=== PATIENT | male | born 1960 | race Caucasian/White ===

== ENCOUNTER 2016-11-14 18:13 | Emergency (ER) | payer MEDICAID ==
--- NOTE | 2016-11-14 18:50 | Emergency Department Record ---
History of Present Illness - General Chief Complaint: Cough Stated Complaint: COUGH AND EAR PAIN Time Seen by Provider: 11/14/16 18:43 Source: Patient Mode of Arrival: Ambulatory Limitations: No limitations - History of Present Illness Initial Comments: 56 yo male presents with a cough for about one month. He has a prior history of asthma and pneumonia 9three times) The cough is dry. No fevers. His family member tested positive for the flu. No hemoptysis. He has left ear pain and pressure. He has clear nasal drainage. MD Complaint: Cough Onset/Timin -: Week(s) Consistency: Constant Worsens With: Other (cough) Associated Symptoms: Cough, Ear pain Treatments Prior to Arrival: None - Related Data Home Medications Medication Instructions Recorded Confirmed Last Taken Fluticasone Propionate [Flonase] 2 spray EACH NARES DAILY 11/20/15 11/14/16 Hydrochlorothiazide 12.5 mg PO DAILY 11/20/15 11/14/16 10/12/16 Montelukast Sodium [Singulair] 10 mg PO DAILY PRN 11/20/15 11/14/16 10/12/16 Previous Rx's Medication Instructions Recorded Benzonatate [Tessalon] 1 cap PO Q8H PRN #20 cap 11/14/16 Prednisone [Prednisone 20Mg] 20 mg PO BID #10 tab 11/14/16 Allergies Allergy/AdvReac Type Severity Reaction Status Date / Time iodine Allergy PT UNSURE Verified 10/12/16 18:23 OF REACTION meperidine HCl [From Demerol] Allergy SWELLING Verified 10/12/16 18:23 (GENERAL) Travel Screening - Travel/Exposure Within Last 30 Days Have you traveled within the last 30 days?: No Review of Systems Constitutional: Denies: Chills, Fever, Malaise, Weakness Eyes: Denies: Eye discharge, Eye pain, Photophobia, Vision change ENT: Reports: Congestion, Ear pain. Denies: Dental pain, Epistaxis, Throat pain Respiratory: Reports: Cough. Denies: Dyspnea, Hemoptysis, Stridor, Wheezes Cardiovascular: Reports: Chest pain (Hurts on the left with a hard cough). Denies: Palpitations, Syncope Endocrine: Denies: Fatigue Gastrointestinal: Denies: Abdominal pain, Diarrhea, Nausea, Vomiting Genitourinary: Denies: Dysuria, Frequency Musculoskeletal: Denies: Arthralgia, Back pain, Myalgia, Neck pain Skin: Denies: Bruising, Change in color Neurological: Denies: Confusion, Headache, Tingling, Tremors Psychiatric: Denies: Anxiety Hematological/Lymphatic: Denies: Blood Clots, Easy bleeding, Easy bruising, Swollen glands Past Medical History - SOCIAL HISTORY Smoking Status: Former smoker Alcohol Use: None Drug Use: None - RESPIRATORY Hx Respiratory Disorders: Yes Hx Asthma: Yes Hx Bronchitis: Yes Hx Pneumonia: Yes Hx Sleep Apnea: Yes Hx of CPAP: No Comment:: seasonal allergies - CARDIOVASCULAR Hx Cardio Disorders: Yes Hx Heart Attack: Yes (20 yrs ago) Hx Hypertension: Yes Comment:: murmur - NEURO Hx Neuro Disorders: Yes Hx Headaches: Yes (silent migraines) - GI Hx GI Disorders: No - Hx Genitourinary Disorders: No - ENDOCRINE Hx Endocrine Disorders: No - MUSCULOSKELETAL Hx Musculoskeletal Disorders: Yes Hx Arthritis: Yes - PSYCH Hx Psych Problems: No - HEMATOLOGY/ONCOLOGY Hx Hematology/Oncology Disorders: No Family Medical History Any Significant Family History?: Yes Hx Cancer: Father, Grandparents *Cancer Comment: Leukemia *Heart Comment: Uncles w/[place] Physical Exam - General General Appearance: Alert, Oriented x3, Cooperative, No acute distress Limitations: No limitations - Head Head exam: Normal inspection - Eye Eye exam: Normal appearance, PERRL. negative: Conjunctival injection - ENT ENT exam: Normal exam, Mucous membranes moist, Normal external ear exam, Normal orophraynx, TM's normal bilaterally Ear exam: Normal external inspection. negative: External canal tenderness Nasal Exam: Normal inspection. negative: Discharge, Sinus tenderness Mouth exam: Normal external inspection, Tongue normal Teeth exam: Normal inspection. negative: Dental caries Throat exam: Normal inspection. negative: Tonsillar erythema, Tonsillar exudate - Neck Neck exam: Normal inspection, Full ROM. negative: Tenderness - Respiratory Respiratory exam: Normal lung sounds bilaterally. negative: Accessory muscle use, Prolonged expiratory, Respiratory distress, Rhonchi, Stridor, Wheezes - Cardiovascular Cardiovascular Exam: Regular rate, Normal rhythm, Normal heart sounds - GI/Abdominal GI/Abdominal exam: Soft. negative: Tenderness - Rectal Rectal exam: Deferred - exam: Deferred - Extremities Extremities exam: Normal inspection, Full ROM, Normal capillary refill. negative: Pedal edema, Tenderness - Back Back exam: Reports: Normal inspection, Full ROM. Denies: Muscle spasm, Rash noted, Tenderness - Neurological Neurological exam: Alert, Normal gait, Oriented X3 - Psychiatric Psychiatric exam: Normal affect, Normal mood - Skin Skin exam: Dry, Intact, Normal color, Warm Course Vital Signs 11/14/16 18:34 Temperature 98.3 F Pulse Rate 73 Respiratory 20 Rate Blood Pressure 152/78 Pulse Ox 97 - Reevaluation(s) Reevaluation #1: CXR unchanged from prior Influenza is negative He was given Tessalon and Prednisone No fever or sputum and CXR is negative No indication for antibiotics at this time. 11/14/16 20:32 11/14/16 21:43 Disposition Disposition: Discharge Clinical Impression: Bronchitis Disposition: Home, Self-Care Condition: (1) Good Instructions: Acute Bronchitis (ED) Additional Instructions: Take prednisone and tessalon as directed Call your doctor for close follow up the next 2-3 days Prescriptions: Prednisone [Prednisone 20Mg] 20 mg PO BID #10 tab Benzonatate [Tessalon] 1 cap PO Q8H PRN #20 cap PRN Reason: Cough Forms: Patient Portal Access Time of Disposition: 20:33
[2016-11-14] MEDS ORDERED: BENZONATATE 100 MG CAPSULE PO ONE (18:53)
[2016-11-14] MEDS ORDERED: PREDNISONE 20 MG TAB PO ONE (18:53)
[2016-11-14 19:22] LABS: INFLUENZA A NEGATIVE (NEGATIVE); INFLUENZA B NEGATIVE (NEGATIVE)
--- NOTE | 2016-11-18 14:06 | RADIOLOGY REPORT ---
DATE: 11/14/2016 at 8:00 p.m. EXAM: TWO-VIEW CHEST. HISTORY: Diagnosed with pneumonia three weeks ago. Cough never went away. Pain in the left side of the chest and left ear. TECHNIQUE: PA and lateral views of the chest were obtained. COMPARISON: Two-view chest dated 10/12/2016. FINDINGS: Heart size is stable. Persistent mild linear fibrosis or discoid atelectasis in the left base. No new infiltrate identified. No pleural effusion or pneumothorax is seen. Some hypertrophic spurring in the spine. IMPRESSION: SOME PERSISTENT MILD LINEAR FIBROSIS OR DISCOID ATELECTASIS IN THE LEFT BASE. HYPERTROPHIC SPURRING IN THE SPINE. JOB NUMBER: [id number] [facility]
== END 2016-11-14 20:49 | disposition home or self-care (01) ==
LOC: ER 18:13
DX: J20.9 Acute bronchitis, unspecified (principal); H92.02 Otalgia, left ear; I10 Essential (primary) hypertension; Z87.891 Personal history of nicotine dependence
CPT/HCPCS: 99283 ×2; 87400; 71020; J7512

== ENCOUNTER 2016-11-20 08:40 | Emergency (ER) | payer MEDICAID ==
--- NOTE | 2016-11-20 08:51 | Emergency Department Record ---
History of Present Illness - General Chief Complaint: Cough Stated Complaint: COUGH Time Seen by Provider: 11/20/16 08:49 Source: Patient Mode of Arrival: Ambulatory Limitations: No limitations - History of Present Illness Initial Comments: The patient is here due to a 2 week hx of cough, congestion, and now colored sputum production. He was in the ER a week ago and diagnosed with a viral URI and placed on oral steroids and a cough medicine. Now the cough and sputum have worsened. MD Complaint: Cough, Nasal congestion, Rhinorrhea Onset/Timin -: Week(s) - Related Data Home Medications Medication Instructions Recorded Confirmed Last Taken Fluticasone Propionate [Flonase] 2 spray EACH NARES DAILY 11/20/15 11/20/1603/31 Hydrochlorothiazide 12.5 mg PO DAILY 11/20/15 11/20/16 11/19/16 Montelukast Sodium [Singulair] 10 mg PO DAILY PRN 11/20/15 11/20/16 11/19/16 Guaifenesin [Mucinex] 600 mg PO DAILY 11/20/16 11/20/16 11/20/16 Previous Rx's Medication Instructions Recorded Benzonatate [Tessalon] 1 cap PO Q8H PRN #20 cap 11/14/16 Prednisone [Prednisone 20Mg] 20 mg PO BID #10 tab 11/14/16 Albuterol Sulfate 0.083% [Neb] 3 ml NEB QID PRN #1 ml 11/20/16 Levofloxacin [Levaquin] 750 mg PO DAILY #4 tablet 11/20/16 Potassium Chloride [Klor-Con] 20 meq PO DAILY #7 tab.prt.sr 11/20/16 Prednisone [Prednisone 20Mg] 20 mg PO ASDIR #15 tab 11/20/16 Allergies Allergy/AdvReac Type Severity Reaction Status Date / Time iodine Allergy PT UNSURE Verified 10/12/16 18:23 OF REACTION meperidine HCl [From Demerol] Allergy SWELLING Verified 10/12/16 18:23 (GENERAL) Travel Screening - Travel/Exposure Within Last 30 Days Have you traveled within the last 30 days?: Yes Location Detail:: [place] - Travel/Exposure Within Last Year Have you traveled outside the [place] in the last year?: No - Additonal Travel Details Have you been exposed to anyone with a communicable illness?: No - Travel Symptoms Symptom Screening: None Review of Systems Constitutional: Denies: Chills, Fever Eyes: Denies: Eye discharge ENT: Reports: Congestion Respiratory: Reports: Cough. Denies: Dyspnea, Wheezes Cardiovascular: Denies: Chest pain Past Medical History - SOCIAL HISTORY Smoking Status: Former smoker Alcohol Use: None Drug Use: None - RESPIRATORY Hx Respiratory Disorders: Yes Hx Asthma: Yes Hx Bronchitis: Yes Hx Pneumonia: Yes Hx Sleep Apnea: Yes Hx of CPAP: No Comment:: seasonal allergies - CARDIOVASCULAR Hx Cardio Disorders: Yes Hx Heart Attack: Yes (20 yrs ago) Hx Hypertension: Yes Comment:: murmur - NEURO Hx Neuro Disorders: Yes Hx Headaches: Yes (silent migraines) - GI Hx GI Disorders: No - Hx Genitourinary Disorders: No - ENDOCRINE Hx Endocrine Disorders: No - MUSCULOSKELETAL Hx Musculoskeletal Disorders: Yes Hx Arthritis: Yes - PSYCH Hx Psych Problems: No - HEMATOLOGY/ONCOLOGY Hx Hematology/Oncology Disorders: No Family Medical History Any Significant Family History?: No Hx Cancer: Father, Grandparents *Cancer Comment: Leukemia *Heart Comment: Uncles w/[place] Physical Exam - General General Appearance: Alert, Oriented x3, Cooperative, No acute distress - Head Head exam: Atraumatic, Normocephalic, Normal inspection - Eye Eye exam: Normal appearance, PERRL - Neck Neck exam: Normal inspection, Full ROM. negative: Tenderness - Respiratory Respiratory exam: Normal lung sounds bilaterally. negative: Respiratory distress, Rhonchi, Stridor, Wheezes - Cardiovascular Cardiovascular Exam: Regular rate, Normal rhythm, Normal heart sounds - GI/Abdominal GI/Abdominal exam: Soft, Normal bowel sounds. negative: Tenderness - Extremities Extremities exam: Normal inspection, Full ROM, Normal capillary refill. negative: Tenderness - Neurological Neurological exam: Normal gait. negative: Abnormal gait Course Vital Signs 11/20/16 08:42 Temperature 98.1 F Pulse Rate 86 Respiratory 16 Rate Blood Pressure 134/85 Pulse Ox 95 - Reevaluation(s) Reevaluation #1: The patient is doing better. He denies any CP or SOB at this time. I did discuss his lab and xray results and the need for F/U if he is not better. 11/20/16 10:03 Medical Decision Making - Data Complexity MDM Data: Labs Ordered and/or Reviewed, X-Ray Ordered and/or Reviewed - Lab Data Result diagrams: 11/20/16 09:15 11/20/16 09:15 - Radiology Data Radiology results: Report reviewed (CXR: No acute changes.) Disposition Disposition: Discharge Clinical Impression: Bronchitis Disposition: Home, Self-Care Condition: (1) Good Instructions: Reactive Airways Disease (ED), Acute Bronchitis (ED) Additional Instructions: Please continue your steroids tomorrow along with the Abx. Take the potassium as directed along with the neb treatments. Please see your PCP later this week if not better and return to the ER if worse. Prescriptions: Albuterol Sulfate 0.083% [Neb] 3 ml NEB QID PRN #1 ml PRN Reason: Difficulty In Breathing Potassium Chloride [Klor-Con] 20 meq PO DAILY #7 tab.prt.sr Levofloxacin [Levaquin] 750 mg PO DAILY #4 tablet Prednisone [Prednisone 20Mg] 20 mg PO ASDIR #15 tab Forms: Patient Portal Access Time of Disposition: 10:08
[2016-11-20] MEDS ORDERED: METHYLPREDNISOLONE PF 125MG/VIAL IM ONE (09:02)
[2016-11-20] MEDS ORDERED: IPRATROPIUM/ALBUTEROL (0.5MG/3MG) NEB INH ONE (09:02)
[2016-11-20] MEDS ORDERED: LEVOFLOXACIN 500 MG TABLET PO ONE (09:17)
[2016-11-20 09:23] LABS: BASO % 0.1 % (0-6); EOS % 0.9 % (0-6); GRAN % 75.6 % (47-80); HEMATOCRIT 44.6 % (42.0-52.0); HEMOGLOBIN 15.2 gm/dl (14.0-18.0); LYMPH % 15.2 % (16-45); MEAN CELL VOLUME 89.4 fl (81-97); MEAN CORPUSCULAR HEMOGLOBIN 30.5 pg (27-33); MEAN CORPUSCULAR HGB CONC 34.1 g/dl (32-36); MEAN PLATELET VOLUME 9.9 fl (7.4-10.4); MONO % 8.2 % (0-9); PLATELET COUNT 245 K/uL (130-400); RED BLOOD COUNT 4.99 M/uL (4.40-5.70); RED CELL DISTRIBUTION WIDTH 13.7 % (11.5-14.5); WHITE BLOOD COUNT W/O DIFF 9.7 K/uL (4.2-12.2)
[2016-11-20 09:35] LABS: ALB/GLOB RATIO 1.5 (1.1-1.8); ALKALINE PHOSPHATASE 69 U/L (38-126); ALT/SGPT 52 U/L (21-72); ANION GAP 14.4 (7-16); AST/SGOT 24 U/L (17-59); BILIRUBIN,TOTAL 0.45 mg/dL (0.2-1.3); BLOOD UREA NITROGEN 11 mg/dL (9-20); CARBON DIOXIDE 27.6 mmol/L (22-30); EST GLOMERULAR FILTRATION RATE > 60 ml/min; GLUCOSE,RANDOM 193 mg/dL (70-110); TOTAL PROTEIN 6.7 gm/dL (6.3-8.2)
[2016-11-20] MEDS ORDERED: POTASSIUM CHLORIDE 20 MEQ TABLET PO ONE (09:39)
[2016-11-20] MEDS ORDERED: 0.9 % SODIUM CHLORIDE 1,000 ML BAG IV ONE (10:02)
--- NOTE | 2016-11-22 12:22 | RADIOLOGY REPORT ---
EXAM: CHEST, TWO VIEWS HISTORY: PRODUCTIVE COUGH FOR THE PAST TWO WEEKS. TECHNIQUE: PA and lateral upright views of the chest were obtained. Comparison: 11/14/16. FINDINGS: The heart, mediastinum, and pulmonary vasculature are normal. There is minor stable linear atelectasis or scarring at the lung bases. This is unchanged from the prior study. There are no visible acute infiltrates or effusions. There is no pneumothorax. Degenerative changes are present within the spine and are unchanged. IMPRESSION: STABLE CHEST WITH NO ACUTE PROCESS IDENTIFIED. JOB NUMBER: [id number] [facility]
== END 2016-11-20 10:48 | disposition home or self-care (01) ==
LOC: ER 08:40
DX: J20.9 Acute bronchitis, unspecified (principal); I10 Essential (primary) hypertension; I25.2 Old myocardial infarction; Z87.891 Personal history of nicotine dependence
CPT/HCPCS: 71020; 80053; 85025; 94640; 96372; 99284; J2930; J7030

== ENCOUNTER 2017-01-16 18:36 | Emergency (ER) | payer MEDICAID ==
[2017-01-16] MEDS ORDERED: ONDANSETRON HCL IV 4 MG/2 ML VIAL IVP ONE (18:58)
[2017-01-16] MEDS ORDERED: 0.9 % SODIUM CHLORIDE 1000ML 1,000 ML IV SCH (19:00)
--- NOTE | 2017-01-16 19:03 | Emergency Department Record ---
History of Present Illness - General Chief complaint: ENT Stated complaint: LT EAR ACHE,DEHYDRATED Time Seen by Provider: 01/16/17 18:58 Source: Patient Mode of Arrival: Ambulatory Limitations: No limitations - History of Present Illness Initial comments: 56 yo male presents to ED stating that he feels "dehydrated". Patient reports that he feels fatigued, and that he has dry skin. Patient reports "flu-like symptoms" and "stomach pain" for the past several months. Patient denies fevers , chills, vomiting, or loose stools. Patient denies productive cough or urinary symptoms. Patient also reports a 1 week history of left ear pain, denies change in hearing or discharge from the ear. Patient denies health problems other than HTN. MD complaint: Ear pain, Other (dehydration) Onset/Timin -: Week(s) Location: L ear, Nose Severity: Mild Quality: Aching Consistency: Constant Improves with: None Worsens with: None Associated Symptoms: Other - Related Data Home Medications Medication Instructions Recorded Confirmed Last Taken Fluticasone Propionate [Flonase] 2 spray EACH NARES DAILY 11/20/15 01/16/1703/31 Hydrochlorothiazide 12.5 mg PO DAILY 11/20/15 01/16/17 01/16/17 Montelukast Sodium [Singulair] 10 mg PO DAILY PRN 11/20/15 01/16/17 01/16/17 Previous Rx's Medication Instructions Recorded Prednisone [Prednisone 20Mg] 20 mg PO BID #10 tab 11/14/16 Albuterol Sulfate 0.083% [Neb] 3 ml NEB QID PRN #1 ml 11/20/16 Allergies Allergy/AdvReac Type Severity Reaction Status Date / Time iodine Allergy PT UNSURE Verified 01/16/17 18:52 OF REACTION meperidine HCl [From Demerol] Allergy SWELLING Verified 01/16/17 18:52 (GENERAL) Travel Screening - Travel/Exposure Within Last 30 Days Have you traveled within the last 30 days?: No Review of Systems Constitutional: Denies: Chills, Fever, Malaise, Night sweats Eyes: Denies: Eye discharge, Eye pain ENT: Reports: Congestion, Ear pain. Denies: Epistaxis Respiratory: Denies: Cough, Dyspnea Cardiovascular: Denies: Chest pain, Dyspnea on exertion Endocrine: Denies: Fatigue, Heat or cold intolerance Gastrointestinal: Denies: Abdominal pain, Nausea, Vomiting Genitourinary: Denies: Incontinence, Retention Musculoskeletal: Denies: Arthralgia, Back pain Skin: Denies: Bruising, Change in color Neurological: Denies: Abnormal gait, Confusion, Headache, Tingling, Tremors Psychiatric: Denies: Anxiety Hematological/Lymphatic: Denies: Anemia, Blood Clots Past Medical History - SOCIAL HISTORY Smoking Status: Former smoker Alcohol Use: None Drug Use: None - RESPIRATORY Hx Respiratory Disorders: Yes Hx Asthma: Yes Hx Bronchitis: Yes Hx Pneumonia: Yes Hx Sleep Apnea: Yes Hx of CPAP: No Comment:: seasonal allergies - CARDIOVASCULAR Hx Cardio Disorders: Yes Hx Heart Attack: Yes (20 yrs ago) Hx Hypertension: Yes Comment:: murmur - NEURO Hx Neuro Disorders: Yes Hx Headaches: Yes (silent migraines) - GI Hx GI Disorders: No - Hx Genitourinary Disorders: No - ENDOCRINE Hx Endocrine Disorders: No - MUSCULOSKELETAL Hx Musculoskeletal Disorders: Yes Hx Arthritis: Yes - PSYCH Hx Psych Problems: No - HEMATOLOGY/ONCOLOGY Hx Hematology/Oncology Disorders: No Family Medical History Any Significant Family History?: Yes Hx Cancer: Father, Grandparents *Cancer Comment: Leukemia *Heart Comment: Uncles w/[place] Physical Exam - General General Appearance: Alert, Oriented x3, Cooperative, No acute distress Limitations: No limitations - Head Head exam: Atraumatic, Normocephalic, Normal inspection Head exam detail: negative: Abrasion, Contusion, Ziegler's sign, General tenderness, Hematoma, Laceration - Eye Eye exam: Normal appearance. negative: Conjunctival injection, Periorbital swelling, Periorbital tenderness, Scleral icterus - ENT Ear exam: Other (Scar tissue left TM, no evidence for infection on examination) . negative: Auricular hematoma, Auricular trauma Nasal Exam: negative: Active bleeding, Discharge, Dried blood, Foreign body Mouth exam: negative: Drooling, Laceration, Muffled voice, Tongue elevation - Neck Neck exam: Normal inspection. negative: Meningismus, Tenderness - Respiratory Respiratory exam: Normal lung sounds bilaterally. negative: Rhonchi, Stridor, Wheezes - Cardiovascular Cardiovascular Exam: Regular rate, Normal rhythm, Normal heart sounds - GI/Abdominal GI/Abdominal exam: Soft. negative: Distended, Pulsatile mass, Rebound, Rigid, Tenderness - Rectal Rectal exam: Deferred - exam: Deferred - Extremities Extremities exam: Normal inspection. negative: Pedal edema, Tenderness - Back Back exam: Denies: CVA tenderness (R), CVA tenderness (L) - Neurological Neurological exam: Alert, Normal gait, Oriented X3 - Psychiatric Psychiatric exam: Normal affect, Normal mood - Skin Skin exam: Normal color. negative: Abrasion Type of lesion: negative: abrasion Course Vital Signs 01/16/17 18:48 Temperature 98.4 F Pulse Rate 68 Respiratory 20 Rate Blood Pressure 145/81 Pulse Ox 95 - Reevaluation(s) Reevaluation #1: 01/16/17 20:07 Labs reviewed and are grossly unremarkable for an acute process. Patient reassessed, reports that he is feeling much better. Patient appears stable for discharge at this time with instructions to follow-up with his PCP in 3-5 days as directed. Medical Decision Making - Lab Data Result diagrams: 01/16/17 19:15 01/16/17 19:15 Disposition Disposition: Discharge Clinical Impression: Dehydration Disposition: Home, Self-Care Condition: (2) Stable Instructions: Dehydration (ED) Additional Instructions: Return to ED if your symptoms worsen or if you have any concerns. Follow-up with your family doctor in 3-5 days as directed. Forms: Patient Portal Access Time of Disposition: 19:54
[2017-01-16 19:30] LABS: BASO % 0.3 % (0-6); EOS % 3.3 % (0-6); GRAN % 61.1 % (47-80); HEMATOCRIT 43.2 % (42.0-52.0); HEMOGLOBIN 14.4 gm/dl (14.0-18.0); MEAN CELL VOLUME 89.1 fl (81-97); MEAN CORPUSCULAR HEMOGLOBIN 29.7 pg (27-33); MEAN CORPUSCULAR HGB CONC 33.3 g/dl (32-36); MEAN PLATELET VOLUME 9.9 fl (7.4-10.4); MONO % 11.3 % (0-9); PLATELET COUNT 219 K/uL (130-400); RED BLOOD COUNT 4.85 M/uL (4.40-5.70); RED CELL DISTRIBUTION WIDTH 13.8 % (11.5-14.5); WHITE BLOOD COUNT W/O DIFF 6.3 K/uL (4.2-12.2)
[2017-01-16 19:35] LABS: ALB/GLOB RATIO 1.5 (1.1-1.8); ALKALINE PHOSPHATASE 76 U/L (38-126); ALT/SGPT 53 U/L (21-72); ANION GAP 11.4 (7-16); AST/SGOT 29 U/L (17-59); BLOOD UREA NITROGEN 15 mg/dL (9-20); CARBON DIOXIDE 24.6 mmol/L (22-30); EST GLOMERULAR FILTRATION RATE > 60 ml/min; GLUCOSE,RANDOM 85 mg/dL (70-110); LIPASE 155 U/L (23-300); TOTAL PROTEIN 6.7 gm/dL (6.3-8.2)
[2017-01-16 20:06] LABS: THYROID STIMULATING HORMONE 1.88 uIU/ml (0.465-4.68)
== END 2017-01-16 20:42 | disposition home or self-care (01) ==
LOC: ER 18:36
DX: E86.0 Dehydration (principal); H92.02 Otalgia, left ear; R53.83 Other fatigue; I10 Essential (primary) hypertension; I25.2 Old myocardial infarction; Z87.891 Personal history of nicotine dependence
CPT/HCPCS: 99284 ×2; 96374; 96361; 83690; 85025; 80053; 84443; J2405; J7030

== ENCOUNTER 2017-11-21 16:19 | Emergency (ER) | payer MEDICAID ==
--- NOTE | 2017-11-21 17:56 | Emergency Department Record ---
History of Present Illness - General Chief complaint: ENT Stated complaint: COUGH,ITCHY THROAT Time Seen by Provider: 11/21/17 17:49 Source: Patient, RN notes reviewed Mode of Arrival: Ambulatory - History of Present Illness Initial comments: congestion and cough and rhinorrhea and he has had it for 1 day. Onset/Timin -: Days(s) Location: Throat Quality: Aching Consistency: Constant Context- Ear: Direct trauma Associated Symptoms: Cough - Related Data Home Medications Medication Instructions Recorded Confirmed Last Taken Loratadine [Claritin] 10 mg PO ASDIR 11/21/17 11/21/17 Unknown Previous Rx's Medication Instructions Recorded Albuterol Sulfate 0.083% [Neb] 3 ml NEB QID PRN #1 ml 11/20/16 Allergies Allergy/AdvReac Type Severity Reaction Status Date / Time iodine Allergy PT UNSURE Verified 11/21/17 17:40 OF REACTION meperidine HCl [From Demerol] Allergy SWELLING Verified 11/21/17 17:40 (GENERAL) Travel Screening - Travel/Exposure Within Last 30 Days Have you traveled within the last 30 days?: No - Travel/Exposure Within Last Year Have you traveled outside the [place] in the last year?: No - Travel Symptoms Symptom Screening: None Review of Systems Reviewed: No additional complaints except as noted below Constitutional: Reports: As per HPI. Denies: Chills, Fever, Malaise, Night sweats, Weakness, Weight change Eyes: Reports: As per HPI. Denies: Eye discharge, Eye pain, Photophobia, Vision change ENT: Reports: As per HPI, Congestion, Throat pain. Denies: Dental pain, Ear pain, Epistaxis, Hearing loss Respiratory: Reports: As per HPI, Cough. Denies: Dyspnea, Hemoptysis, Stridor, Wheezes Cardiovascular: Reports: As per HPI. Denies: Arrhythmia, Chest pain, Dyspnea on exertion, Edema, Murmurs, Orthopnea, Palpitations, Paroxysmal nocturnal dyspnea, Rheumatic Fever, Syncope Endocrine: Reports: As per HPI. Denies: Fatigue, Heat or cold intolerance, Polydipsia, Polyuria Gastrointestinal: Reports: As per HPI. Denies: Abdominal pain, Constipation, Diarrhea, Hematemesis, Hematochezia, Melena, Nausea, Vomiting Genitourinary: Reports: As per HPI. Denies: Dysuria, Frequency, Hematuria, Incontinence, Retention, Testicular pain, Testicular mass, Urgency Musculoskeletal: Reports: As per HPI. Denies: Arthralgia, Back pain, Gout, Joint swelling, Myalgia, Neck pain Skin: Reports: As per HPI. Denies: Bruising, Change in color, Change in hair/ nails, Lesions, Pruritus, Rash Neurological: Reports: As per HPI. Denies: Abnormal gait, Confusion, Headache, Numbness, Paresthesias, Seizure, Tingling, Tremors, Vertigo, Weakness Psychiatric: Reports: As per HPI. Denies: Anxiety, Auditory hallucinations, Depression, Homicidal thoughts, Suicidal thoughts, Visual hallucinations Hematological/Lymphatic: Reports: As per HPI. Denies: Anemia, Blood Clots, Easy bleeding, Easy bruising, Swollen glands Past Medical History - SOCIAL HISTORY Smoking Status: Former smoker Alcohol Use: None Drug Use: None - RESPIRATORY Hx Respiratory Disorders: Yes Hx Asthma: Yes Hx Bronchitis: Yes Hx Pneumonia: Yes Hx Sleep Apnea: Yes Hx of CPAP: No Comment:: seasonal allergies - CARDIOVASCULAR Hx Cardio Disorders: Yes Hx Heart Attack: Yes (20 yrs ago) Hx Hypertension: Yes Comment:: murmur - NEURO Hx Neuro Disorders: Yes Hx Headaches: Yes (silent migraines) - GI Hx GI Disorders: No - Hx Genitourinary Disorders: No - ENDOCRINE Hx Endocrine Disorders: No - MUSCULOSKELETAL Hx Musculoskeletal Disorders: Yes Hx Arthritis: Yes - PSYCH Hx Psych Problems: No - HEMATOLOGY/ONCOLOGY Hx Hematology/Oncology Disorders: No Family Medical History Any Significant Family History?: No Hx Cancer: Father, Grandparents *Cancer Comment: Leukemia *Heart Comment: Uncles w/[place] Physical Exam - General General Appearance: Alert, Oriented x3, Cooperative, No acute distress - Head Head exam: Normal inspection - Eye Eye exam: Normal appearance, PERRL Pupils: Normal accommodation - ENT ENT exam: Normal exam, Mucous membranes moist, Normal external ear exam, Normal orophraynx, TM's normal bilaterally Ear exam: Normal external inspection. negative: External canal tenderness Nasal Exam: Normal inspection. negative: Discharge, Sinus tenderness Mouth exam: Normal external inspection, Tongue normal Teeth exam: Normal inspection. negative: Dental caries Throat exam: Normal inspection. negative: Tonsillar erythema, Tonsillar exudate - Neck Neck exam: Normal inspection, Full ROM. negative: Tenderness - Respiratory Respiratory exam: Normal lung sounds bilaterally. negative: Respiratory distress - Cardiovascular Cardiovascular Exam: Regular rate, Normal rhythm, Normal heart sounds - GI/Abdominal GI/Abdominal exam: Soft, Normal bowel sounds. negative: Tenderness - Rectal Rectal exam: Deferred - exam: Deferred - Extremities Extremities exam: Normal inspection, Full ROM, Normal capillary refill. negative: Tenderness - Back Back exam: Reports: Normal inspection, Full ROM. Denies: Muscle spasm, Rash noted, Tenderness - Neurological Neurological exam: Alert, Normal gait, Oriented X3, Reflexes normal - Psychiatric Psychiatric exam: Normal affect, Normal mood - Skin Skin exam: Dry, Intact, Normal color, Warm Course Vital Signs 11/21/17 17:32 Temperature 98.5 F Pulse Rate 73 Respiratory 16 Rate Blood Pressure 155/83 Pulse Ox 96 Disposition Clinical Impression: Influenza Disposition: Home, Self-Care Condition: (1) Good Instructions: Influenza (ED) Additional Instructions: fluid, robitussin DM for cough. tylenol or motrin or advil for pain Time of Disposition: 17:55 Quality - Quality Measures Quality Measures: N/A - Blood Pressure Screening Does Patient Have Any of the Following: No Blood Pressure Classification: Pre-Hypertensive BP Reading Systolic Measurement: 155 Diastolic Measurement: 83 Screening for High Blood Pressure: < Pre-Hypertensive BP, F/U Documented > [ [id number]] Pre-Hypertensive Follow-up Interventions: Referral to alternative/primary care provider.
== END 2017-11-21 18:20 | disposition home or self-care (01) ==
LOC: ER 16:19
DX: J10.1 Influenza due to other identified influenza virus with other respiratory manifestations (principal)
CPT/HCPCS: 99282

== ENCOUNTER 2017-12-24 18:03 | Emergency (ER) | payer MEDICAID ==
--- NOTE | 2017-12-24 18:36 | Emergency Department Record ---
History of Present Illness - General Chief complaint: Hemorrhoids Stated complaint: HEMORRHOIDS Time Seen by Provider: 12/24/17 18:19 Source: Patient Mode of Arrival: Ambulatory Limitations: No limitations - History of Present Illness Initial comments: pt has a lump on his buttock which is getting bigger that he thinks is getting bigger complaint: Blood on toilet paper Onset/Timin -: Week(s) Quality: Burning Improves with: None Worsens with: Bowel movement, Other Associated Symptoms: Denies other symptoms Treatments Prior to Arrival: None - Related Data Previous Rx's Medication Instructions Recorded Albuterol Sulfate 0.083% [Neb] 3 ml NEB QID PRN #1 ml 11/20/16 Amoxicillin/Potassium Clav 1 tab PO BID #14 tab 12/24/17 [Augmentin 875-125 Tablet] Allergies Allergy/AdvReac Type Severity Reaction Status Date / Time iodine Allergy PT UNSURE Verified 12/24/17 18:08 OF REACTION meperidine HCl [From Demerol] Allergy SWELLING Verified 12/24/17 18:08 (GENERAL) Travel Screening - Travel/Exposure Within Last 30 Days Have you traveled within the last 30 days?: No Review of Systems Reviewed: No additional complaints except as noted below Constitutional: Reports: As per HPI. Denies: Chills, Fever, Malaise, Night sweats, Weakness, Weight change Eyes: Reports: As per HPI. Denies: Eye discharge, Eye pain, Photophobia, Vision change ENT: Reports: As per HPI. Denies: Congestion, Dental pain, Ear pain, Epistaxis , Hearing loss, Throat pain Respiratory: Reports: As per HPI. Denies: Cough, Dyspnea, Hemoptysis, Stridor, Wheezes Cardiovascular: Reports: As per HPI. Denies: Arrhythmia, Chest pain, Dyspnea on exertion, Edema, Murmurs, Orthopnea, Palpitations, Paroxysmal nocturnal dyspnea, Rheumatic Fever, Syncope Endocrine: Reports: As per HPI. Denies: Fatigue, Heat or cold intolerance, Polydipsia, Polyuria Gastrointestinal: Reports: As per HPI. Denies: Abdominal pain, Constipation, Diarrhea, Hematemesis, Hematochezia, Melena, Nausea, Vomiting Genitourinary: Reports: As per HPI. Denies: Dysuria, Frequency, Hematuria, Incontinence, Retention, Testicular pain, Testicular mass, Urgency Musculoskeletal: Reports: As per HPI. Denies: Arthralgia, Back pain, Gout, Joint swelling, Myalgia, Neck pain Skin: Reports: As per HPI. Denies: Bruising, Change in color, Change in hair/ nails, Lesions, Pruritus, Rash Neurological: Reports: As per HPI. Denies: Abnormal gait, Confusion, Headache, Numbness, Paresthesias, Seizure, Tingling, Tremors, Vertigo, Weakness Psychiatric: Reports: As per HPI. Denies: Anxiety, Auditory hallucinations, Depression, Homicidal thoughts, Suicidal thoughts, Visual hallucinations Hematological/Lymphatic: Reports: As per HPI. Denies: Anemia, Blood Clots, Easy bleeding, Easy bruising, Swollen glands Past Medical History - SOCIAL HISTORY Smoking Status: Former smoker Alcohol Use: None Drug Use: None - RESPIRATORY Hx Respiratory Disorders: Yes Hx Asthma: Yes Hx Bronchitis: Yes Hx Pneumonia: Yes Hx Sleep Apnea: Yes Hx of CPAP: No Comment:: seasonal allergies - CARDIOVASCULAR Hx Cardio Disorders: Yes Hx Heart Attack: Yes Hx Hypertension: Yes Comment:: murmur - NEURO Hx Neuro Disorders: Yes Hx Headaches: Yes (silent migraines) - GI Hx GI Disorders: No - Hx Genitourinary Disorders: No - ENDOCRINE Hx Endocrine Disorders: No - MUSCULOSKELETAL Hx Musculoskeletal Disorders: Yes Hx Arthritis: Yes - PSYCH Hx Psych Problems: No - HEMATOLOGY/ONCOLOGY Hx Hematology/Oncology Disorders: No Family Medical History Any Significant Family History?: Yes Hx Cancer: Father, Grandparents *Cancer Comment: Leukemia *Heart Comment: Uncles w/[place] Physical Exam - General General Appearance: Alert, Oriented x3, Cooperative, Mild distress - Head Head exam: Normal inspection - Eye Eye exam: Normal appearance, PERRL, EOMI Pupils: Normal accommodation - ENT ENT exam: Normal exam, Mucous membranes moist, Normal external ear exam, Normal orophraynx, TM's normal bilaterally Ear exam: Normal external inspection. negative: External canal tenderness Nasal Exam: Normal inspection. negative: Discharge, Sinus tenderness Mouth exam: Normal external inspection, Tongue normal Teeth exam: Normal inspection. negative: Dental caries Throat exam: Normal inspection. negative: Tonsillar erythema, Tonsillar exudate - Neck Neck exam: Normal inspection, Full ROM. negative: Tenderness - Respiratory Respiratory exam: Normal lung sounds bilaterally. negative: Respiratory distress - Cardiovascular Cardiovascular Exam: Regular rate, Normal rhythm, Normal heart sounds - GI/Abdominal GI/Abdominal exam: Soft, Normal bowel sounds. negative: Tenderness - Rectal Rectal exam: Tenderness, Other (draining pilonidal abscess) - exam: Deferred - Extremities Extremities exam: Normal inspection, Full ROM, Normal capillary refill. negative: Tenderness - Back Back exam: Reports: Normal inspection, Full ROM. Denies: Muscle spasm, Rash noted, Tenderness - Neurological Neurological exam: Alert, Normal gait, Oriented X3, Reflexes normal - Psychiatric Psychiatric exam: Normal affect, Normal mood - Skin Skin exam: Dry, Intact, Normal color, Warm Course Vital Signs 12/24/17 18:09 Temperature 98.1 F Pulse Rate 72 Respiratory 20 Rate Blood Pressure 167/86 Pulse Ox 98 - Reevaluation(s) Reevaluation #1: 12/24/17 19:05 pilonidal abscess is already draining. area sterilely prepped and draped. cleansed w betadine. incised with 11 blade after being anesthetized with lido. small amt of addl fluid released. abscess contd to drain. Procedures - Incision and Drainage Blade Size: 11 Disposition Disposition: Discharge Clinical Impression: Perirectal abscess Disposition: Home, Self-Care Condition: (1) Good Instructions: Pilonidal Cyst (ED) Additional Instructions: follow up with family doctor. return sooner if worse. warm sitz baths twice a day. Prescriptions: Amoxicillin/Potassium Clav [Augmentin 875-125 Tablet] 1 tab PO BID #14 tab Forms: Patient Portal Access Quality - Quality Measures Quality Measures: N/A - Blood Pressure Screening Does Patient Have Any of the Following: No Blood Pressure Classification: Pre-Hypertensive BP Reading Systolic Measurement: 167 Diastolic Measurement: 86 Screening for High Blood Pressure: < Pre-Hypertensive BP, F/U Documented > [ G8950] Pre-Hypertensive Follow-up Interventions: Follow-up with rescreen every year.
[2017-12-24] MEDS ORDERED: AMOXICILLIN/POTASSIUM CLAV 875MG/125MG TABLET PO ONE (18:56)
== END 2017-12-24 19:17 | disposition home or self-care (01) ==
LOC: ER 18:03
DX: L05.01 Pilonidal cyst with abscess (principal); I10 Essential (primary) hypertension; I25.2 Old myocardial infarction; Z87.891 Personal history of nicotine dependence
CPT/HCPCS: 10080; 99284

== ENCOUNTER 2018-02-03 16:33 | Emergency (ER) | payer MEDICAID ==
[2018-02-03] MEDS ORDERED: 0.9 % SODIUM CHLORIDE 1,000 ML BAG IV ONE (16:48)
[2018-02-03] MEDS ORDERED: ONDANSETRON HCL IV 4 MG/2 ML VIAL IV ONE (16:48)
--- NOTE | 2018-02-03 16:51 | Emergency Department Record ---
History of Present Illness - General Chief Complaint: Abdominal Pain Stated Complaint: DIARRHEA,LT SIDE PAIN,WEAK Time Seen by Provider: 02/03/18 16:44 Source: Patient Mode of Arrival: Ambulatory Limitations: No limitations - History of Present Illness Initial Comments: The patient is here due to not feeling well for 3 days. He has had mild nausea and loose stools for 3 days. The patient states he has been having 3-4 loose watery stools daily with vague AP off and on. He denies any fever, chills, back pain, CP, SOB, or sweating. The patient does state he is having intermittent L axilla cramping pain that lasts seconds at a time. The pain is intermittent and not associated with TYSHAWN, SOB, or sweating and is not worse with exertion. Presently he denies any pain or discomfort. MD Complaint: Abdominal pain, Other Onset/Timin -: Days(s) Location: L Flank Radiation: Other Severity scale (1-10): 8 Quality: Other Improves With: Nothing Worsens With: Nothing Associated Symptoms: Diarrhea, Nausea, Other - Related Data Previous Rx's Medication Instructions Recorded Albuterol Sulfate 0.083% [Neb] 3 ml NEB QID PRN #1 ml 11/20/16 Allergies Allergy/AdvReac Type Severity Reaction Status Date / Time iodine Allergy PT UNSURE Verified 02/03/18 16:44 OF REACTION meperidine HCl [From Demerol] Allergy SWELLING Verified 02/03/18 16:44 (GENERAL) Travel Screening - Travel/Exposure Within Last 30 Days Have you traveled within the last 30 days?: No - Travel/Exposure Within Last Year Have you traveled outside the [place] in the last year?: No - Additonal Travel Details Have you been exposed to anyone with a communicable illness?: No - Travel Symptoms Symptom Screening: None Review of Systems Constitutional: Denies: Chills, Fever Eyes: Denies: Eye discharge ENT: Denies: Congestion Respiratory: Denies: Cough, Dyspnea Cardiovascular: Denies: Arrhythmia, Chest pain Endocrine: Reports: Fatigue Gastrointestinal: Reports: Abdominal pain, Diarrhea, Nausea. Denies: Vomiting Genitourinary: Denies: Dysuria Musculoskeletal: Denies: Arthralgia Past Medical History - SOCIAL HISTORY Smoking Status: Former smoker Alcohol Use: None Drug Use: None - RESPIRATORY Hx Respiratory Disorders: Yes Hx Asthma: Yes Hx Bronchitis: Yes Hx Pneumonia: Yes Hx Sleep Apnea: Yes Hx of CPAP: No Comment:: seasonal allergies - CARDIOVASCULAR Hx Cardio Disorders: Yes Hx Heart Attack: Yes Hx Hypertension: Yes Comment:: murmur - NEURO Hx Neuro Disorders: Yes Hx Headaches: Yes (silent migraines) - GI Hx GI Disorders: No - Hx Genitourinary Disorders: No - ENDOCRINE Hx Endocrine Disorders: No - MUSCULOSKELETAL Hx Musculoskeletal Disorders: Yes Hx Arthritis: Yes - PSYCH Hx Psych Problems: No - HEMATOLOGY/ONCOLOGY Hx Hematology/Oncology Disorders: No Family Medical History Any Significant Family History?: No Hx Cancer: Father, Grandparents *Cancer Comment: Leukemia *Heart Comment: Uncles w/[place] Physical Exam - General General Appearance: Alert, Oriented x3, Cooperative, No acute distress - Head Head exam: Atraumatic, Normocephalic, Normal inspection - Eye Eye exam: Normal appearance, PERRL - Neck Neck exam: Normal inspection, Full ROM. negative: Tenderness - Respiratory Respiratory exam: Normal lung sounds bilaterally. negative: Respiratory distress - Cardiovascular Cardiovascular Exam: Regular rate, Normal rhythm, Normal heart sounds - GI/Abdominal GI/Abdominal exam: Soft, Normal bowel sounds. negative: Distended, Guarding, Hypoactive bowel sounds, Mass, Rebound, Rigid, Tenderness - Extremities Extremities exam: Normal inspection, Full ROM, Normal capillary refill. negative: Tenderness - Back Back exam: Reports: Normal inspection, Full ROM. Denies: Muscle spasm, Rash noted, Tenderness - Neurological Neurological exam: Alert, Normal gait. negative: Abnormal gait, Motor sensory deficit Course Vital Signs 02/03/18 16:37 Temperature 99.0 F Pulse Rate 70 Respiratory 16 Rate Blood Pressure 148/90 Pulse Ox 97 - Reevaluation(s) Reevaluation #1: The patient is doing a lot better at this time. He denies any pain or discomfort. I did discuss with him that his Lipase is mildly elevated which I do not believe he has had in the past. Due to that fact he is to return to the ER in the morning for recheck. 02/03/18 17:35 Medical Decision Making - Data Complexity MDM Data: Labs Ordered and/or Reviewed, EKG Ordered and/or Reviewed - Lab Data Result diagrams: 02/03/18 16:50 02/03/18 16:50 - EKG Data -: EKG Interpreted by Me EKG: No Acute Changes, Unchanged From Previous Disposition Disposition: Discharge Clinical Impression: Diarrhea Qualifiers: Diarrhea type: unspecified type Qualified Code(s): R19.7 - Diarrhea, unspecified Disposition: Home, Self-Care Condition: (2) Stable Instructions: Acute Diarrhea (ED) Additional Instructions: Please drink plenty of fluids tonight. Return to the ER at 8am for recheck and repeat lab work. Return sooner for any increased pain, fever, or vomiting. Forms: Patient Portal Access Time of Disposition: 17:38 Quality - Quality Measures Quality Measures: N/A - Blood Pressure Screening View Details: Yes Does Patient Have Any of the Following: Active Dx of HTN Blood Pressure Classification: Hypertensive Reading Systolic Measurement: 148 Diastolic Measurement: 90 Screening for High Blood Pressure: Patient Exclusion, Hx of HTN [G9744]
[2018-02-03 17:03] LABS: URINE APPEARANCE CLEAR; URINE BILIRUBIN NEGATIVE (NEGATIVE); URINE BLOOD NEGATIVE (NEGATIVE); URINE COLOR YELLOW; URINE GLUCOSE (UA) NEGATIVE (NEGATIVE); URINE KETONE NEGATIVE (NEGATIVE); URINE LEUKOCYTE ESTERASE NEGATIVE (NEGATIVE); URINE NITRITE NEGATIVE (NEGATIVE); URINE PROTEIN NEGATIVE (NEGATIVE); URINE UROBILINOGEN 0.2 E.U./dL (0.20 - 1.00)
[2018-02-03 17:04] LABS: BASO % 0.4 % (0-6); GRAN % 58.6 % (47-80); HEMATOCRIT 44.5 % (42.0-52.0); LYMPH % 29.3 % (16-45); MEAN CORPUSCULAR HGB CONC 33.7 g/dl (32-36); MEAN PLATELET VOLUME 9.9 fl (7.4-10.4); MONO % 8.7 % (0-9); PLATELET COUNT 249 K/uL (130-400); RED CELL DISTRIBUTION WIDTH 13.5 % (11.5-14.5); WHITE BLOOD COUNT W/O DIFF 7.3 K/uL (4.2-12.2)
[2018-02-03 17:16] LABS: BLOOD UREA NITROGEN 11 mg/dL (6-20); CREATININE 0.9 mg/dL (0.7-1.2); EST GLOMERULAR FILTRATION RATE > 60 mL/min
[2018-02-03 17:17] LABS: TOTAL PROTEIN 6.6 g/dL (6.6-8.7)
[2018-02-03 17:19] LABS: GLUCOSE,RANDOM 123 mg/dL (74-109)
[2018-02-03 17:21] LABS: ALBUMIN 4.1 g/dL (4.0-5.0); ALT/SGPT 40 U/L (<41); AST/SGOT 24 U/L (10.0-50.0)
[2018-02-03 17:22] LABS: ALKALINE PHOSPHATASE 72 U/L (40-129); BILIRUBIN,DIRECT < 0.2 mg/dL (0-0.3); CREATINE PHOSPHOKINASE 102 U/L (39-308); LIPASE 161 U/L (13-60)
== END 2018-02-03 17:48 | disposition home or self-care (01) ==
LOC: ER 16:33
DX: R19.7 Diarrhea, unspecified (principal); R11.0 Nausea; R74.8 Abnormal levels of other serum enzymes; I10 Essential (primary) hypertension; I25.2 Old myocardial infarction; Z87.891 Personal history of nicotine dependence
CPT/HCPCS: 99284 ×2; 96374; 82550; 83690; 85025; 80076; 82553; 80048; 81003; 84484; 93005; 93010; J2405; J7030

== ENCOUNTER 2018-02-04 08:24 | Emergency (ER) | payer MEDICAID ==
--- NOTE | 2018-02-04 08:28 | Emergency Department Record ---
History of Present Illness - General Chief Complaint: Recheck - Other Stated Complaint: LAB RECHECK Time Seen by Provider: 02/04/18 08:25 Source: Patient Mode of arrival: Ambulatory Limitations: No limitations - History of Present Illness Initial Comments: The patient is here for recheck due to being seen yesterday in the ER for mild AP and diarrhea. He did have a mildly elevated Lipase so he was asked to return today for recheck. Today he is doing well with no pain or nausea. He has had mild loose stools since discharge yesterday. The patient is also very hungry today. Complaint: Other Onset/Timin -: Days(s) - Related Data Previous Rx's Medication Instructions Recorded Albuterol Sulfate 0.083% [Neb] 3 ml NEB QID PRN #1 ml 11/20/16 Allergies Allergy/AdvReac Type Severity Reaction Status Date / Time iodine Allergy PT UNSURE Verified 02/03/18 16:44 OF REACTION meperidine HCl [From Demerol] Allergy SWELLING Verified 02/03/18 16:44 (GENERAL) Review of Systems Constitutional: Denies: Chills, Fever Eyes: Denies: Eye discharge ENT: Denies: Congestion Respiratory: Denies: Cough, Dyspnea Past Medical History - SOCIAL HISTORY Smoking Status: Former smoker Drug Use: None - RESPIRATORY Hx Respiratory Disorders: Yes Hx Asthma: Yes Hx Bronchitis: Yes Hx Pneumonia: Yes Hx Sleep Apnea: Yes Hx of CPAP: No Comment:: seasonal allergies - CARDIOVASCULAR Hx Cardio Disorders: Yes Hx Heart Attack: Yes Hx Hypertension: Yes Comment:: murmur - NEURO Hx Neuro Disorders: Yes Hx Headaches: Yes (silent migraines) - GI Hx GI Disorders: No - Hx Genitourinary Disorders: No - ENDOCRINE Hx Endocrine Disorders: No - MUSCULOSKELETAL Hx Musculoskeletal Disorders: Yes Hx Arthritis: Yes - PSYCH Hx Psych Problems: No - HEMATOLOGY/ONCOLOGY Hx Hematology/Oncology Disorders: No Family Medical History Hx Cancer: Father, Grandparents *Cancer Comment: Leukemia *Heart Comment: Uncles w/[place] Physical Exam - General General Appearance: Alert, Oriented x3, Cooperative, No acute distress - Head Head exam: Atraumatic, Normocephalic, Normal inspection - Eye Eye exam: Normal appearance, PERRL - Neck Neck exam: Normal inspection, Full ROM. negative: Tenderness - Respiratory Respiratory exam: Normal lung sounds bilaterally. negative: Respiratory distress - Cardiovascular Cardiovascular Exam: Regular rate, Normal rhythm, Normal heart sounds - GI/Abdominal GI/Abdominal exam: Soft, Normal bowel sounds. negative: Rebound, Rigid, Tenderness - Extremities Extremities exam: Normal inspection, Full ROM, Normal capillary refill. negative: Tenderness - Neurological Neurological exam: Alert. negative: Motor sensory deficit Course - Reevaluation(s) Reevaluation #1: The patient is doing very well at this time and is asymptomatic. I did discuss the mildly elevated Lipase with him and due to the fact he is doing so well he is to F/U with his PCP for further testing. 02/04/18 09:05 Reevaluation #2: The patient is doing very well presently. He denies any pain or discomfort. I explained to him about the results of the US. He is to see his PCP for recheck of his mildly elevated Lipase and possibly for further testing if indicated. 02/04/18 10:15 Medical Decision Making - Data Complexity MDM Data: Labs Ordered and/or Reviewed, X-Ray Ordered and/or Reviewed - Lab Data Result diagrams: 02/04/18 08:33 02/04/18 08:33 - Radiology Data Radiology results: Report reviewed (Abd US: R kidney cyst with fatty liver, O/W neg.) Disposition Disposition: Discharge Clinical Impression: Diarrhea Qualifiers: Diarrhea type: unspecified type Qualified Code(s): R19.7 - Diarrhea, unspecified Disposition: Home, Self-Care Condition: (2) Stable Instructions: Acute Diarrhea (ED) Additional Instructions: Please see your family doctor later this week for recheck and discuss the mildly elevated Lipase. Eat a very bland diet. Return to the ER for any worsening symptoms or any abdominal pain, fever, or vomiting. Forms: Patient Portal Access Time of Disposition: 09:04 Quality - Quality Measures Quality Measures: N/A - Blood Pressure Screening View Details: Yes Does Patient Have Any of the Following: No Blood Pressure Classification: Hypertensive Reading Systolic Measurement: 143 Diastolic Measurement: 90 Screening for High Blood Pressure: < First Hypertensive BP, F/U Documented > [ G8950] First Hypertensive Follow-up Interventions: Referral to alternative/primary care provider.
[2018-02-04 08:38] LABS: BASO % 0.3 % (0-6); EOS % 2.9 % (0-6); GRAN % 58.1 % (47-80); HEMATOCRIT 44.8 % (42.0-52.0); HEMOGLOBIN 15.3 gm/dl (14.0-18.0); LYMPH % 30.1 % (16-45); MEAN CELL VOLUME 88.9 fl (81-97); MEAN CORPUSCULAR HEMOGLOBIN 30.4 pg (27-33); MEAN CORPUSCULAR HGB CONC 34.2 g/dl (32-36); MEAN PLATELET VOLUME 9.9 fl (7.4-10.4); MONO % 8.6 % (0-9); PLATELET COUNT 239 K/uL (130-400); RED BLOOD COUNT 5.04 M/uL (4.40-5.70); RED CELL DISTRIBUTION WIDTH 13.4 % (11.5-14.5); WHITE BLOOD COUNT W/O DIFF 7.2 K/uL (4.2-12.2)
[2018-02-04 08:49] LABS: BLOOD UREA NITROGEN 10 mg/dL (6-20); CREATININE 0.9 mg/dL (0.7-1.2); EST GLOMERULAR FILTRATION RATE > 60 mL/min
[2018-02-04 08:50] LABS: TOTAL PROTEIN 6.4 g/dL (6.6-8.7)
[2018-02-04 08:52] LABS: GLUCOSE,RANDOM 162 mg/dL (74-109)
[2018-02-04 08:54] LABS: ALT/SGPT 40 U/L (<41); AST/SGOT 23 U/L (10.0-50.0)
[2018-02-04 08:55] LABS: ALB/GLOB RATIO 1.5 (1.1-1.8); ALBUMIN 3.8 g/dL (4.0-5.0); ALKALINE PHOSPHATASE 74 U/L (40-129); LIPASE 172 U/L (13-60)
--- NOTE | 2018-02-04 10:59 | ULTRASOUND REPORT ---
EXAM: ULTRASOUND OF THE ABDOMEN HISTORY: ABDOMINAL PAIN, ELEVATED LIPASE. TECHNIQUE: Sonographic evaluation of the abdomen was performed using angulo scale imaging. FINDINGS: The liver appears fatty infiltrative. No focal hepatic mass. No ductal dilatation. The common bile duct measures 2 mm. The pancreas is not well visualized. The spleen measurements are within normal limits. The kidneys are normal in size with no hydronephrosis or nephrolithiasis. There is a benign appearing cyst in the right kidney measuring 2.3 cm. The abdominal aorta and inferior vena cava are patent. IMPRESSION: 1. NO GALLSTONES OR DUCTAL DILATATION. 2. 2.3 CM CYST IN THE RIGHT KIDNEY. 3. FATTY INFILTRATION OF THE LIVER. JOB NUMBER: [id number] [facility]
== END 2018-02-04 10:21 | disposition home or self-care (01) ==
LOC: ER 08:24
DX: R19.7 Diarrhea, unspecified (principal); R74.8 Abnormal levels of other serum enzymes; I10 Essential (primary) hypertension; I25.2 Old myocardial infarction; Z87.891 Personal history of nicotine dependence
CPT/HCPCS: 76700; 80053; 83690; 85025; 99283; 99284

== ENCOUNTER 2018-07-13 21:05 | Emergency (ER) | payer MEDICAID ==
[2018-07-13] MEDS ORDERED: HUMULIN R 100 UNIT/ML VIAL SQ ONE (21:54)
[2018-07-13] MEDS ORDERED: DIPHENHYDRAMINE HCL 50 MG/ML VIAL IM ONE (21:55)
[2018-07-13] MEDS ORDERED: METHYLPREDNISOLONE PF 125MG/VIAL IM ONE (21:55)
--- NOTE | 2018-07-13 22:02 | Emergency Department Record ---
History of Present Illness - General Chief complaint: Rash Stated complaint: RASH Time Seen by Provider: 07/13/18 21:36 Source: Patient Mode of Arrival: Ambulatory Limitations: No limitations - History of Present Illness Initial comments: pt has poison [place]ac as his does. he thinks he got it when he took out the trash. complaint: Rash Onset/Timin -: Days(s) Location: Head, Chest, RUE Severity: Mild Quality: Burning, Other Consistency: Constant Improves with: None Worsens with: None Context: Other Associated symptoms: Denies other symptoms Treatments Prior to Arrival: None Treatment Prior to Arrival Comment:: none - Related Data Previous Rx's Medication Instructions Recorded Albuterol Sulfate 0.083% [Neb] 3 ml NEB QID PRN #1 ml 11/20/16 Methylprednisolone [Medrol Dose 4 mg PO ASDIR #1 tab.ds.pk 07/13/18 Pack] Allergies Allergy/AdvReac Type Severity Reaction Status Date / Time iodine Allergy PT UNSURE Verified 07/13/18 21:23 OF REACTION meperidine HCl [From Demerol] Allergy SWELLING Verified 07/13/18 21:23 (GENERAL) Travel Screening - Travel/Exposure Within Last 30 Days Have you traveled within the last 30 days?: No - Travel/Exposure Within Last Year Have you traveled outside the [place] in the last year?: No - Additonal Travel Details Have you been exposed to anyone with a communicable illness?: No - Travel Symptoms Symptom Screening: None Review of Systems Reviewed: No additional complaints except as noted below Constitutional: Reports: As per HPI. Denies: Chills, Fever, Malaise, Night sweats, Weakness, Weight change Eyes: Reports: As per HPI. Denies: Eye discharge, Eye pain, Photophobia, Vision change ENT: Reports: As per HPI. Denies: Congestion, Dental pain, Ear pain, Epistaxis , Hearing loss, Throat pain Respiratory: Reports: As per HPI. Denies: Cough, Dyspnea, Hemoptysis, Stridor, Wheezes Cardiovascular: Reports: As per HPI. Denies: Arrhythmia, Chest pain, Dyspnea on exertion, Edema, Murmurs, Orthopnea, Palpitations, Paroxysmal nocturnal dyspnea, Rheumatic Fever, Syncope Endocrine: Reports: As per HPI. Denies: Fatigue, Heat or cold intolerance, Polydipsia, Polyuria Gastrointestinal: Reports: As per HPI. Denies: Abdominal pain, Constipation, Diarrhea, Hematemesis, Hematochezia, Melena, Nausea, Vomiting Genitourinary: Reports: As per HPI. Denies: Dysuria, Frequency, Hematuria, Incontinence, Retention, Testicular pain, Testicular mass, Urgency Musculoskeletal: Reports: As per HPI. Denies: Arthralgia, Back pain, Gout, Joint swelling, Myalgia, Neck pain Skin: Reports: As per HPI. Denies: Bruising, Change in color, Change in hair/ nails, Lesions, Pruritus, Rash Neurological: Reports: As per HPI. Denies: Abnormal gait, Confusion, Headache, Numbness, Paresthesias, Seizure, Tingling, Tremors, Vertigo, Weakness Psychiatric: Reports: As per HPI. Denies: Anxiety, Auditory hallucinations, Depression, Homicidal thoughts, Suicidal thoughts, Visual hallucinations Hematological/Lymphatic: Reports: As per HPI. Denies: Anemia, Blood Clots, Easy bleeding, Easy bruising, Swollen glands Past Medical History - SOCIAL HISTORY Smoking Status: Former smoker Alcohol Use: None Drug Use: None - RESPIRATORY Hx Respiratory Disorders: Yes Hx Asthma: Yes Hx Bronchitis: Yes Hx Pneumonia: Yes Hx Sleep Apnea: Yes Hx of CPAP: Yes Comment:: seasonal allergies - CARDIOVASCULAR Hx Cardio Disorders: Yes Hx Heart Attack: Yes Hx Hypertension: Yes Comment:: murmur - NEURO Hx Neuro Disorders: Yes Hx Headaches: Yes (silent migraines) - GI Hx GI Disorders: No - Hx Genitourinary Disorders: No - ENDOCRINE Hx Endocrine Disorders: No - MUSCULOSKELETAL Hx Musculoskeletal Disorders: Yes Hx Arthritis: Yes - PSYCH Hx Psych Problems: No - HEMATOLOGY/ONCOLOGY Hx Hematology/Oncology Disorders: No Family Medical History Any Significant Family History?: No Hx Cancer: Father, Grandparents *Cancer Comment: Leukemia *Heart Comment: Uncles w/[place] Physical Exam - General General Appearance: Alert, Oriented x3, Cooperative, Mild distress - Head Head exam: Normal inspection - Eye Eye exam: Normal appearance, PERRL, EOMI Pupils: Normal accommodation - ENT ENT exam: Normal exam, Mucous membranes moist, Normal external ear exam, Normal orophraynx Ear exam: Normal external inspection. negative: External canal tenderness Nasal Exam: Normal inspection. negative: Discharge, Sinus tenderness Mouth exam: Normal external inspection, Tongue normal Teeth exam: Normal inspection. negative: Dental caries Throat exam: Normal inspection. negative: Tonsillar erythema, Tonsillar exudate - Neck Neck exam: Normal inspection, Full ROM. negative: Tenderness - Respiratory Respiratory exam: Normal lung sounds bilaterally. negative: Respiratory distress - Cardiovascular Cardiovascular Exam: Regular rate, Normal rhythm, Normal heart sounds - GI/Abdominal GI/Abdominal exam: Soft, Normal bowel sounds. negative: Tenderness - Rectal Rectal exam: Deferred - exam: Deferred - Extremities Extremities exam: Normal inspection, Full ROM, Normal capillary refill. negative: Tenderness - Back Back exam: Reports: Normal inspection, Full ROM. Denies: Muscle spasm, Rash noted, Tenderness - Neurological Neurological exam: Alert, CN II-XII intact, Normal gait, Oriented X3 - Psychiatric Psychiatric exam: Normal affect, Normal mood - Skin Skin exam: Dry, Intact, Normal color, Rash, Warm Distribution of rash: Chest, Face, RUE, LUE Description of rash: Crusting, Erythematous, Fluctuant, Macular, Papular, Vesicular Course Vital Signs 07/13/18 21:19 Temperature 98.8 F Pulse Rate [ 72 Pulse Ox Probe] Respiratory 17 Rate Blood Pressure 178/83 [Right Arm] Pulse Ox 96 Disposition Disposition: Discharge Clinical Impression: Allergic dermatitis due to poison [place] Disposition: Home, Self-Care Condition: (1) Good Instructions: Poison [place] (ED), Cold Compress or Soak (ED) Additional Instructions: follow up with family doctor. return sooner if worse. benadryl every 6 hrs as needed. dont scratch Prescriptions: Methylprednisolone [Medrol Dose Pack] 4 mg PO ASDIR #1 tab.ds.pk Quality - Quality Measures Quality Measures: N/A - Blood Pressure Screening Does Patient Have Any of the Following: No Blood Pressure Classification: Pre-Hypertensive BP Reading Systolic Measurement: 178 Diastolic Measurement: 83 Screening for High Blood Pressure: < Pre-Hypertensive BP, F/U Documented > [ G8950] Pre-Hypertensive Follow-up Interventions: Follow-up with rescreen every year.
== END 2018-07-13 23:05 | disposition home or self-care (01) ==
LOC: ER 21:05
DX: L23.7 Allergic contact dermatitis due to plants, except food (principal); I10 Essential (primary) hypertension; Z87.891 Personal history of nicotine dependence
CPT/HCPCS: 96372; 99282; 99283; J1200; J2930

== ENCOUNTER 2018-07-21 10:37 | Emergency (ER) | payer MEDICAID ==
[2018-07-21] MEDS ORDERED: METHYLPREDNISOLONE PF 125MG/VIAL IM ONE (11:29)
--- NOTE | 2018-07-21 11:46 | Emergency Department Record ---
History of Present Illness - General Chief complaint: Rash Stated complaint: POISON [place] Time Seen by Provider: 07/21/18 10:58 Source: Patient Mode of Arrival: Ambulatory Limitations: No limitations - History of Present Illness Initial comments: The patient is here due to a worsening poison [place] rash for the last couple of days. He had been on a Medrol dose pack for it with his last dose yesterday and the rash has been worsening for 2 days. It is quite pruritic and he does deny any fever, chills, CP, SOB, or TYSHAWN. complaint: Rash Onset/Timin -: Days(s) Location: Generalized - Related Data Previous Rx's Medication Instructions Recorded Albuterol Sulfate 0.083% [Neb] 3 ml NEB QID PRN #1 ml 11/20/16 Methylprednisolone [Medrol Dose 4 mg PO ASDIR #1 tab.ds.pk 07/13/18 Pack] Prednisone [Prednisone 20Mg] 20 mg PO ASDIR #15 tab 07/21/18 Allergies Allergy/AdvReac Type Severity Reaction Status Date / Time iodine Allergy PT UNSURE Verified 07/21/18 10:49 OF REACTION meperidine HCl [From Demerol] Allergy SWELLING Verified 07/21/18 10:49 (GENERAL) Travel Screening - Travel/Exposure Within Last 30 Days Have you traveled within the last 30 days?: No - Travel/Exposure Within Last Year Have you traveled outside the [place] in the last year?: No - Additonal Travel Details Have you been exposed to anyone with a communicable illness?: No - Travel Symptoms Symptom Screening: None Review of Systems Constitutional: Denies: Chills, Fever Eyes: Denies: Eye discharge ENT: Denies: Congestion, Other Respiratory: Denies: Cough, Dyspnea Past Medical History - SOCIAL HISTORY Smoking Status: Former smoker Alcohol Use: None, Rare Drug Use: None - RESPIRATORY Hx Respiratory Disorders: Yes Hx Asthma: Yes Hx Bronchitis: Yes Hx Pneumonia: Yes Hx Sleep Apnea: Yes Hx of CPAP: Yes Comment:: seasonal allergies - CARDIOVASCULAR Hx Cardio Disorders: Yes Hx Heart Attack: Yes Hx Hypertension: Yes Comment:: murmur - NEURO Hx Neuro Disorders: Yes Hx Headaches: Yes (silent migraines) - GI Hx GI Disorders: No - Hx Genitourinary Disorders: No - ENDOCRINE Hx Endocrine Disorders: No - MUSCULOSKELETAL Hx Musculoskeletal Disorders: Yes Hx Arthritis: Yes - PSYCH Hx Psych Problems: No - HEMATOLOGY/ONCOLOGY Hx Hematology/Oncology Disorders: No Family Medical History Any Significant Family History?: Yes Hx Cancer: Father, Grandparents *Cancer Comment: Leukemia *Heart Comment: Uncles w/OK Physical Exam - General General Appearance: Alert, Oriented x3, Cooperative, No acute distress - Head Head exam: Atraumatic, Normocephalic, Normal inspection - Eye Eye exam: Normal appearance, PERRL - Neck Neck exam: Normal inspection, Full ROM. negative: Tenderness - Respiratory Respiratory exam: Normal lung sounds bilaterally. negative: Respiratory distress - Cardiovascular Cardiovascular Exam: Regular rate, Normal rhythm, Normal heart sounds - Extremities Extremities exam: Normal inspection, Full ROM, Normal capillary refill. negative: Tenderness - Neurological Neurological exam: Alert. negative: Motor sensory deficit - Skin Skin exam: Rash (There is a scattered macular papular erythematous rash with slight linear vesicles in spots on the chest and medial arms. It does appear to most likely be poison sumac.) Course Vital Signs 07/21/18 10:51 Temperature 98.4 F Pulse Rate 58 L Respiratory 16 Rate Blood Pressure 151/86 Pulse Ox 94 L - Reevaluation(s) Reevaluation #1: I did explain the need to take continue his Claritin for itching and start the Prednisone tomorrow. He is to see his PCP if not better later this week. 07/21/18 11:52 Disposition Disposition: Discharge Clinical Impression: Allergic dermatitis due to poison [place]ac Disposition: Home, Self-Care Condition: (2) Stable Instructions: Acute Rash (ED) Additional Instructions: Please continue your Claritin and start the Prednisone tomorrow. Please use the OTC medicine [place] as directed. Please see your family doctor for recheck later this week. Prescriptions: Prednisone [Prednisone 20Mg] 20 mg PO ASDIR #15 tab Forms: Patient Portal Access Time of Disposition: 11:54 Quality - Quality Measures Quality Measures: N/A - Blood Pressure Screening View Details: Yes Does Patient Have Any of the Following: No Blood Pressure Classification: Pre-Hypertensive BP Reading Systolic Measurement: 151 Diastolic Measurement: 86 Screening for High Blood Pressure: < Pre-Hypertensive BP, F/U Documented > [ G8950] Pre-Hypertensive Follow-up Interventions: Referral to alternative/primary care provider.
== END 2018-07-21 12:33 | disposition home or self-care (01) ==
LOC: ER 10:37
DX: L23.7 Allergic contact dermatitis due to plants, except food (principal); I10 Essential (primary) hypertension; I25.2 Old myocardial infarction
CPT/HCPCS: 96372; 99282; 99283; J2930

== ENCOUNTER 2019-09-17 08:32 | Emergency (ER) | payer MEDICAID ==
[2019-09-17] MEDS ORDERED: IPRATROPIUM/ALBUTEROL (0.5MG/3MG) NEB INH ONE (09:17)
[2019-09-17 09:27] LABS: STREP A SCREEN NEGATIVE (NEGATIVE)
[2019-09-17 09:30] LABS: INFLUENZA A NEGATIVE (NEGATIVE); INFLUENZA B POSITIVE (NEGATIVE)
[2019-09-17 09:37] LABS: HEMATOCRIT 43.5 % (42.0-52.0); HEMOGLOBIN 14.6 gm/dl (14.0-18.0); MEAN CELL VOLUME 89.1 fl (81-97); MEAN CORPUSCULAR HEMOGLOBIN 29.9 pg (27-33); MEAN CORPUSCULAR HGB CONC 33.6 g/dl (32-36); MEAN PLATELET VOLUME 9.7 fl (7.4-10.4); PLATELET COUNT 207 K/uL (130-400); RED BLOOD COUNT 4.88 M/uL (4.40-5.70); RED CELL DISTRIBUTION WIDTH 13.5 % (11.5-14.5); WHITE BLOOD COUNT W/O DIFF 4.8 K/uL (4.2-12.2)
--- NOTE | 2019-09-17 09:58 | RADIOLOGY REPORT ---
EXAMINATION: Two View Chest Radiographs EXAM DATE: 09/17/2019 9:41 AM TECHNIQUE: Frontal and lateral views INDICATION: cough COMPARISON: 11/20/2016 ENCOUNTER: Not applicable FINDINGS: Cardiomediastinal structures stable. No pulmonary consolidation or infiltration. Scarring left base. No pneumothorax or pleural effusion. IMPRESSION: No acute abnormality Dictated by: Antoni Funk MD on 09/17/2019 9:55 AM. .
[2019-09-17] MEDS: METHYLPREDNISOLONE PF 125MG/VIAL IVP ONE (09:59)
--- NOTE | 2019-09-17 10:08 | Emergency Department Record ---
History of Present Illness - General Chief Complaint: Cough Stated Complaint: FEVER/COUGH Time Seen by Provider: 09/17/19 09:08 Mode of Arrival: Ambulatory - History of Present Illness Onset/Timin -: Days(s) Consistency: Intermittent - Related Data Previous Rx's Medication Instructions Recorded Albuterol Sulfate 0.083% [Neb] 3 ml NEB QID PRN #1 ml 11/20/16 [Albuterol Sulfate] Prednisone [Prednisone 20Mg] 20 mg PO ASDIR #15 tab 07/21/18 Prednisone [Prednisone 10Mg] 10 mg PO ASDIR #30 tab 09/17/19 Allergies Allergy/AdvReac Type Severity Reaction Status Date / Time iodine Allergy PT UNSURE Verified 09/17/19 08:46 OF REACTION meperidine HCl [From Demerol] Allergy SWELLING Verified 09/17/19 08:46 (GENERAL) Travel Screening - Travel/Exposure Within Last 30 Days Have you traveled within the last 30 days?: No - Travel/Exposure Within Last Year Have you traveled outside the [place] in the last year?: No - Additonal Travel Details Have you been exposed to anyone with a communicable illness?: No - Travel Symptoms Symptom Screening: None Past Medical History - SOCIAL HISTORY Smoking Status: Former smoker Alcohol Use: None Drug Use: None - RESPIRATORY Hx Respiratory Disorders: Yes Hx Asthma: Yes Hx Bronchitis: Yes Hx Pneumonia: Yes Hx Sleep Apnea: Yes Hx of CPAP: Yes Comment:: seasonal allergies - CARDIOVASCULAR Hx Cardio Disorders: Yes Hx Heart Attack: Yes Hx Hypertension: Yes Comment:: murmur - NEURO Hx Neuro Disorders: Yes Hx Headaches: Yes (silent migraines) - GI Hx GI Disorders: No - Hx Genitourinary Disorders: No - ENDOCRINE Hx Endocrine Disorders: No - MUSCULOSKELETAL Hx Musculoskeletal Disorders: Yes Hx Arthritis: Yes - PSYCH Hx Psych Problems: No - HEMATOLOGY/ONCOLOGY Hx Hematology/Oncology Disorders: No Family Medical History Any Significant Family History?: Yes Hx Cancer: Father, Grandparents *Cancer Comment: Leukemia *Heart Comment: Uncles w/[place] Course Vital Signs 09/17/19 08:49 Temperature 99.5 F Pulse Rate 75 Respiratory 20 Rate Blood Pressure 152/97 Pulse Ox 95 - Reevaluation(s) Reevaluation #1: talked about tamiflu but he has been sick for 3 days 10:06 Medical Decision Making - Data Complexity MDM Data: Labs Ordered and/or Reviewed (influenza B positive), X-Ray Ordered and/or Reviewed (chest xray negative) - Lab Data Result diagrams: 09/17/19 09:30 Lab Results 09/17/19 09/17/19 Range/Units 09:13 09:30 WBC 4.8 (4.2-12.2) K/uL RBC 4.88 (4.40-5.70) M/uL Hgb 14.6 (14.0-18.0) gm/dl Hct 43.5 (42.0-52.0) % MCV 89.1 (81-97) fl MCH 29.9 (27-33) pg MCHC 33.6 (32-36) g/dl RDW 13.5 (11.5-14.5) % Plt Count 207 (130-400) K/uL MPV 9.7 (7.4-10.4) fl Neutrophils % 72.0 (47-80) % Eosinophils % Not Reportable Basophils % Not Reportable Absolute Neutrophils Not Reportable Lymphocytes 14.0 L (16-45) % Monocytes 9.0 (0-9) % Eosinophil Count 5.0 (0-6) % Influenza Type A Ag Negative (NEGATIVE) Influenza Type B Ag Positive H (NEGATIVE) Group A Strep Screen Negative (NEGATIVE) Disposition Clinical Impression: Influenza B Disposition: Home, Self-Care Condition: (1) Good Instructions: Influenza (ED) Additional Instructions: fluids tylenol and motrin robitussin DM cough syrup prednisone taper use albuterol 2 puffs every 4 hours and symbicort follow up with Dr Valentin in 5 days Prescriptions: Prednisone [Prednisone 10Mg] 10 mg PO ASDIR #30 tab Time of Disposition: 10:05 Quality - Quality Measures Quality Measures: N/A - Blood Pressure Screening Does Patient Have Any of the Following: No, Active Dx of HTN Blood Pressure Classification: Hypertensive Reading Systolic Measurement: 152 Diastolic Measurement: 97 Screening for High Blood Pressure: Patient Exclusion, Hx of HTN [G9744]
== END 2019-09-17 10:28 | disposition home or self-care (01) ==
LOC: ER 08:32
DX: J10.1 Influenza due to other identified influenza virus with other respiratory manifestations (principal); Z87.891 Personal history of nicotine dependence
CPT/HCPCS: 71046; 85027; 87400; 87880; 94640; 99283; J2930

== ENCOUNTER 2019-10-08 09:33 | Emergency (ER) | payer MEDICAID ==
[2019-10-08] MEDS ORDERED: 0.9 % SODIUM CHLORIDE 1,000 ML BAG IV ONE (09:54)
--- NOTE | 2019-10-08 09:59 | Emergency Department Record ---
History of Present Illness - General Chief Complaint: Dizziness Stated Complaint: DIZZY Time Seen by Provider: 10/08/19 09:48 Source: Patient, RN notes reviewed Mode of Arrival: Ambulatory - History of Present Illness Initial Comments: patient had influenza 2 weeks ago adn he is lightheaded and right upper quad pain and no balance problems. ears are good and throat is clear and right upper quad discomfort and no nausea and no vomiting . MD Complaint: Dizziness, Lightheadedness Onset/Timin -: Days(s) Associated Symptoms: Denies other symptoms - [place] Coma Scale Eye Response: (4) Open spontaneously Motor Response: (6) Obeys commands Verbal Response: (5) Oriented Giovany Total: 15 - Related Data Previous Rx's Medication Instructions Recorded Albuterol Sulfate 0.083% [Neb] 3 ml NEB QID PRN #1 ml 11/20/16 [Albuterol Sulfate] Meclizine HCl [Antivert] 25 mg PO Q8H #30 tablet 10/08/19 Allergies Allergy/AdvReac Type Severity Reaction Status Date / Time iodine Allergy PT UNSURE Verified 10/08/19 09:38 OF REACTION meperidine HCl [From Demerol] Allergy SWELLING Verified 10/08/19 09:38 (GENERAL) Travel Screening - Travel/Exposure Within Last 30 Days Have you traveled within the last 30 days?: No Review of Systems Reviewed: No additional complaints except as noted below Constitutional: Reports: As per HPI. Denies: Chills, Fever, Malaise, Night sweats, Weakness, Weight change Eyes: Reports: As per HPI. Denies: Eye discharge, Eye pain, Photophobia, Vision change ENT: Reports: As per HPI. Denies: Congestion, Dental pain, Ear pain, Epistaxis, Hearing loss, Throat pain Respiratory: Reports: As per HPI. Denies: Cough, Dyspnea, Hemoptysis, Stridor, Wheezes Cardiovascular: Reports: As per HPI. Denies: Arrhythmia, Chest pain, Dyspnea on exertion, Edema, Murmurs, Orthopnea, Palpitations, Paroxysmal nocturnal dyspnea, Rheumatic Fever, Syncope Endocrine: Reports: As per HPI. Denies: Fatigue, Heat or cold intolerance, Polydipsia, Polyuria Gastrointestinal: Reports: As per HPI. Denies: Abdominal pain, Constipation, Diarrhea, Hematemesis, Hematochezia, Melena, Nausea, Vomiting Genitourinary: Reports: As per HPI. Denies: Dysuria, Frequency, Hematuria, Incontinence, Retention, Testicular pain, Testicular mass, Urgency Musculoskeletal: Reports: As per HPI. Denies: Arthralgia, Back pain, Gout, Joint swelling, Myalgia, Neck pain Skin: Reports: As per HPI. Denies: Bruising, Change in color, Change in hair/nails, Lesions, Pruritus, Rash Neurological: Reports: As per HPI. Denies: Abnormal gait, Confusion, Headache, Numbness, Paresthesias, Seizure, Tingling, Tremors, Vertigo, Weakness Psychiatric: Reports: As per HPI. Denies: Anxiety, Auditory hallucinations, Depression, Homicidal thoughts, Suicidal thoughts, Visual hallucinations Hematological/Lymphatic: Reports: As per HPI. Denies: Anemia, Blood Clots, Easy bleeding, Easy bruising, Swollen glands Past Medical History - SOCIAL HISTORY Smoking Status: Former smoker Alcohol Use: None Drug Use: None - RESPIRATORY Hx Respiratory Disorders: Yes Hx Asthma: Yes Hx Bronchitis: Yes Hx Pneumonia: Yes Hx Sleep Apnea: Yes Hx of CPAP: Yes Comment:: seasonal allergies - CARDIOVASCULAR Hx Cardio Disorders: Yes Hx Heart Attack: Yes Hx Hypertension: Yes Comment:: murmur - NEURO Hx Neuro Disorders: Yes Hx Headaches: Yes (silent migraines) - GI Hx GI Disorders: No - Hx Genitourinary Disorders: No - ENDOCRINE Hx Endocrine Disorders: No - MUSCULOSKELETAL Hx Musculoskeletal Disorders: Yes Hx Arthritis: Yes - PSYCH Hx Psych Problems: No - HEMATOLOGY/ONCOLOGY Hx Hematology/Oncology Disorders: No Family Medical History Any Significant Family History?: Yes Hx Cancer: Father, Grandparents *Cancer Comment: Leukemia *Heart Comment: Uncles w/[place] Physical Exam - General General Appearance: Alert, Oriented x3, Cooperative, No acute distress - Head Head exam: Normal inspection - Eye Eye exam: Normal appearance, PERRL Pupils: Normal accommodation - ENT ENT exam: Normal exam, Mucous membranes moist, Normal external ear exam, Normal orophraynx, TM's normal bilaterally Ear exam: Normal external inspection. negative: External canal tenderness Nasal Exam: Normal inspection. negative: Discharge, Sinus tenderness Mouth exam: Normal external inspection, Tongue normal Teeth exam: Normal inspection. negative: Dental caries Throat exam: Normal inspection. negative: Tonsillar erythema, Tonsillar exudate - Neck Neck exam: Normal inspection, Full ROM. negative: Tenderness - Respiratory Respiratory exam: Normal lung sounds bilaterally. negative: Respiratory distress - Cardiovascular Cardiovascular Exam: Regular rate, Normal rhythm, Normal heart sounds - GI/Abdominal GI/Abdominal exam: Soft, Normal bowel sounds. negative: Tenderness - Rectal Rectal exam: Deferred - exam: Deferred - Extremities Extremities exam: Normal inspection, Full ROM, Normal capillary refill. negative: Tenderness - Back Back exam: Reports: Normal inspection, Full ROM. Denies: Muscle spasm, Rash noted, Tenderness - Neurological Neurological exam: Alert, Normal gait, Oriented X3, Reflexes normal - Psychiatric Psychiatric exam: Normal affect, Normal mood - Skin Skin exam: Dry, Intact, Normal color, Warm Course Vital Signs 10/08/19 09:36 Temperature 97.9 F Pulse Rate 74 Respiratory 20 Rate Blood Pressure 163/83 Pulse Ox 97 Medical Decision Making - Lab Data Result diagrams: 10/08/19 10:00 10/08/19 10:00 Disposition Clinical Impression: Dehydration Abdominal pain Qualifiers: Abdominal location: right upper quadrant Qualified Code(s): R10.11 - Right upper quadrant pain BPV (benign positional vertigo) Qualifiers: Laterality: unspecified laterality Qualified Code(s): H81.10 - Benign paroxysmal vertigo, unspecified ear Disposition: Home, Self-Care Condition: (2) Stable Instructions: Dizziness (ED), Dehydration (ED) Additional Instructions: follow up with family Dr in 7 days Prescriptions: Meclizine HCl [Antivert] 25 mg PO Q8H #30 tablet Forms: Patient Portal Access Time of Disposition: 11:13 Quality - Quality Measures Quality Measures: N/A - Blood Pressure Screening Does Patient Have Any of the Following: No Blood Pressure Classification: Pre-Hypertensive BP Reading Systolic Measurement: 163 Diastolic Measurement: 83 Screening for High Blood Pressure: < Pre-Hypertensive BP, F/U Documented > [G8950] Pre-Hypertensive Follow-up Interventions: Referral to alternative/primary care provider.
[2019-10-08 10:12] LABS: ABSOLUTE NEUTROPHIL COUNT 4.15; BASO % 0.5 % (0-6); HEMATOCRIT 43.8 % (42.0-52.0); HEMOGLOBIN 14.8 gm/dl (14.0-18.0); LYMPH % 25.9 % (16-45); MEAN CELL VOLUME 89.2 fl (81-97); MEAN CORPUSCULAR HEMOGLOBIN 30.1 pg (27-33); MEAN CORPUSCULAR HGB CONC 33.8 g/dl (32-36); MEAN PLATELET VOLUME 9.9 fl (7.4-10.4); MONO % 7.6 % (0-9); PLATELET COUNT 221 K/uL (130-400); RED BLOOD COUNT 4.91 M/uL (4.40-5.70); RED CELL DISTRIBUTION WIDTH 13.3 % (11.5-14.5); WHITE BLOOD COUNT W/O DIFF 6.5 K/uL (4.2-12.2)
[2019-10-08 10:25] LABS: BLOOD UREA NITROGEN 12 mg/dL (6-20); EST GLOMERULAR FILTRATION RATE > 60 mL/min
[2019-10-08 10:26] LABS: LIPASE 39 U/L (13-60); TOTAL PROTEIN 6.3 g/dL (6.6-8.7)
[2019-10-08 10:28] LABS: GLUCOSE,RANDOM 179 mg/dL (74-109)
[2019-10-08 10:30] LABS: ALBUMIN 3.9 g/dL (4.0-5.0); ALT/SGPT 37 U/L (<41); AST/SGOT 21 U/L (10.0-50.0)
[2019-10-08 10:31] LABS: ALKALINE PHOSPHATASE 61 U/L (40-129)
[2019-10-08 10:33] LABS: BILIRUBIN,DIRECT < 0.2 mg/dL (0-0.3)
[2019-10-08] MEDS ORDERED: MECLIZINE 25 MG TABLET PO ONE (11:12)
== END 2019-10-08 11:33 | disposition home or self-care (01) ==
LOC: ER 09:33
DX: E86.0 Dehydration (principal); R10.11 Right upper quadrant pain; H81.10 Benign paroxysmal vertigo, unspecified ear; F17.210 Nicotine dependence, cigarettes, uncomplicated; I10 Essential (primary) hypertension; I25.2 Old myocardial infarction
CPT/HCPCS: 80048; 80076; 83690; 85025; 99284; J7030